=== PATIENT | male | born 1960 | race Caucasian/White ===

== ENCOUNTER 2021-09-25 08:08 | Day surgery (SDC) | payer OTHER, SELFPAY ==
[~2021-09-25] VITALS: Ht 177.8 cm; Wt 93.4 kg
== END 2021-09-25 09:40 | disposition home or self-care (01) ==
LOC: MMU 08:08 → MDS 08:08
PROVIDERS: ATTEND Internal Medicine Gastroenterology
DX: Z01.818 Encounter for other preprocedural examination (principal); Z20.822 Contact with and (suspected) exposure to COVID-19